=== PATIENT | female | born 1950 | race Caucasian/White ===

== ENCOUNTER → 2018-12-24 05:45 | Day surgery (SDC) | payer BC ==
[~2018-12-24 05:45] MED LIST: Buffered Lidocaine 1% SYRIN* 1 ML/SYRINGE INTRADERM ONE; Bupivacaine 0.5%* 50 ML VIAL ONE; Dexamethasone IV* 4 MG/ML 1 ML (4 MG) ONE; DiMENhydriNATE IV* 50 MG/ML VIAL IV PUSH PRN; DiMENhydriNATE IV* 50 MG/ML VIAL ONE; Famotidine IV* 10 MG/ML 2 ML (20 mg) IV ONE; Famotidine IV* 10 MG/ML 2 ML (20 mg) ONE; HYDROcodone/ACETAMIN 5-325 MG* 1 TAB PO PRN; Ketorolac INJ* 30 MG/ML 1 ML VIAL ONE; Lactated Ringers 1000 ML Bag* 1,000 ML IV SCH; Lidocaine 2% PF * 5 ML VIAL ONE; Midazolam* 1 MG/ML 5 ML VIAL (5 MG) ONE; Naloxone* 0.4 MG/ML 1 ML VIAL IV PRN; Ondansetron INJ* 2 MG/ML VIAL ONE; Propofol* 10 MG/ML 20 ML BTL ONE; ceFAZolin 2 GM in NS PREMIX(*) 2 GM/100 ML BAG IVPB ONE; fentaNYL* 50 MCG/ML 2 ML VIAL (100 MCG VIAL) ONE
--- NOTE | 2018-12-24 08:37 | OP ---
Operative Report - Blank - Operative Report Date of Operation: 12/24/18 Note: PATIENT: Sol Pari DATE OF : 1950 DATE OF SURGERY: 12/24/2018 SURGEON: Hemanth Trinh MD DIRECTOR INDUSTRIAL MUSEUM: JON Luis, whos assistance was necessary for positioning, retraction, help with instrumentation, and closure. ANESTHESIOLOGIST: Dr. Johnson PREOPERATIVE DIAGNOSIS: Right foot hallux rigidus POSTOPERATIVE DIAGNOSIS: Right foot hallux rigidus OPERATION: Right foot first metatarsophalangeal joint cheilectomy with placement of Cartiva implant ANESTHESIA: MAC IMPLANTS: 10mm Cartiva implant TOURNIQUET TIME: Less than one hour with an ankle Esmarch tourniquet. SPECIMENS: None ESTIMATED BLOOD LOSS: Minimal COMPLICATIONS: none STATUS: Stable from the operating room to the recovery room and then home. INDICATIONS FOR PROCEDURE: Sol has right hallux rigidus that has failed non-op treatment. My recommendation was a fusion but she had done research and wanted a cheilectomy and Cartiva. The nature and risks of surgery were reviewed in careful detail, in the office as well on multiple occasions as the pre-operative holding area. Our discussions regarding the risks of surgery included, but were not limited to , infection, wound problems, nerve injury, neuroma, RSD, persistent symptoms, blood clot, fracture, need for further surgery, need for fusion, adverse reaction to the implant, failure of the surgery, and even the remote chance of catastrophic complication, including loss of limb. DESCRIPTION OF PROCEDURE: The patient was seen in the preoperative holding unit and informed written consent was obtained. The appropriate extremity was marked. The patient was then brought to the operating room and carefully positioned on the operating room table. Anesthesia was induced. All bony prominences were padded with great care. A chlorhexidine based pre-scrub was performed followed by a chloraprep prep and drape in standard sterile fashion. A surgical safety pause was then conducted in which we confirmed the appropriate patient, extremity, planned procedure, availability of equipment, indication and administration of prophylactic antibiotics, and DVT prophylaxis in the form of a compression boot on the non-surgical extremity. I began by placing a sterile calf tourniquet and then performed an Esmarch exsanguination of the limb and inflated the tourniquet. I then made an incision dorsally overlying the first MTP joint. I carried the dissection down through the soft tissue and mobilized the EHL tendon laterally. I then came sharply down to the level of the first MTP joint. There was a large free loose body dorsal to the 1st MT head that was excised. I then released around the medial aspects and lateral aspects of the joint to expose the metatarsal head and the base of the proximal phalanx. We had excellent visualization. There were extensive arthritic changes and osteophytes present. Osteophytes on the proximal phalanx and the metatarsal head were removed with a rongeur. Care was taken to preserve adequate dorsal bone stock for insertion and stability of the implant. The MTP joint was then checked for range of motion and showed great improvement over what was present preoperatively. The MTP joint was then plantar flexed to allow for visualization of the entirety of the first metatarsal head. The sizing/aiming guide for the implant were then centered on the metatarsal head. The guidewire was then advanced into the metatarsal head through the cannulation of the aiming guide. The aiming guide was then removed. Placement of the guidewire was confirmed. The cannulated drill was then used to drill the cavity for the implant. This was done with cold irrigation. The drill was advanced until the guard was flush with the surrounding metatarsal head surface. The drill and guidewire were then removed. Irrigation was performed followed by removal of any bone debris. The implant was then removed from the sterile packaging using smooth forceps. The introducer was then moistened with sterile saline. The implant was then inserted into the introducer tube at the wider end. The flat end of the implant was facing downwards during introduction. Using the small flat end of the placer , the implant was then brought to the distal end of the introducer tube. This was confirmed visually. The distal end of the introducer tube was then placed against the recipient site cavity. The placer was then carefully advanced into the introducer tube to deliver the implant into the metatarsal head recipient cavity. The introducer tube was then removed and it was confirmed that the implant sat approximately 1-2 mm proud from the surrounding metatarsal head. The joint was then copiously irrigated and all remaining debris removed. The joint was then reduced and range of motion testing was performed showing an improvement from what was seen preoperatively. The wounds were copiously irrigated and meticulously closed in layers utilizing 3-0 Monocryl and 3-0 nylon. A sterile dressing was then applied. The patient was then awakened from anesthesia and transferred to the recovery room in stable condition. There were no complications. All needle and sponge counts were correct at the end of the case. ATTESTATION: I attest I was present and scrubbed and performed the critical portions of the procedure myself. POSTOPERATIVE PLAN: The patient will remain heel weightbearing in a postop shoe for anticipated duration of 2 weeks. Followup will be in 2 weeks for likely suture removal and Steri-Strip application. She can then progress to WBAT in either a postop shoe or a short walking boot.
[2018-12-24 09:49] VITALS: BP 160/92
== END | disposition home or self-care (01) ==
LOC: OR 05:45
PROVIDERS: ATTEND Orthopaedic Surgery
DX: M20.21 Hallux rigidus, right foot (principal); Z87.891 Personal history of nicotine dependence
CPT/HCPCS: C1776; J0690; J1100; J1240; J1885; J2250; J2405; J2704; J3010; J3490